=== PATIENT | female | born 1985 | race Caucasian/White ===

== ENCOUNTER 2016-11-20 12:45 | Emergency (ER) | payer OTHER ==
[~2016-11-20] VITALS: Ht 162.6 cm; Wt 95.9 kg
[~2016-11-20 12:45] MED LIST: SULF1TAB12 PO
[2016-11-20 13:32] VITALS: BP 125/75
--- NOTE | 2016-11-20 18:45 | NUR ---
Patient ambulated to bed 7. RN evaluating patient at bedside.
--- NOTE | 2016-11-20 18:50 | NUR ---
PATIENT PRESENTS TO ED WITH C/O SHARP EPIGASTRIC PAIN WITH N/V/ X 3DAYS;DIARRHEA SINCE YESTERDAY;UNABLE TO TOLERATE PO'S;SEVERE HEARTBURN AT NIGHT, BLOATED SENSATION;SKIN IS PINK/WARM/DRY; AAOX4 WITH EVEN AND STEADY GAIT; LUNGS CLEAR BL; HR EVEN AND REGULAR; PT DENIES ANY FEVER, CP, SOB, OR COUGH AT THIS TIME; PATIENT STATES PAIN OF 8/10 AT THIS TIME; PATIENT POSITIONED FOR COMFORT; HOB ELEVATED; BEDRAILS UP X2; BED DOWN. ALL MONITORS IN PLACED.
--- NOTE | 2016-11-20 19:18 | NUR ---
RECEIVED REPORT FROM DAY NURSE CEDRICK SCHILLING FOR TRANSFER OF CARE.
[2016-11-20] MEDS ORDERED: ONDANSETRON 4 MG/2 ML VIAL IVP ONE ×2 (19:50→22:15)
[2016-11-20] MEDS ORDERED: NACL 0.9% 1,000 ML IV ONE (19:50)
[2016-11-20] MEDS ORDERED: HYDROmorphone 1 MG/ML AMP IVP ONE ×2 (19:50→22:15)
--- NOTE | 2016-11-20 20:00 | NUR ---
PATIENT BEING EVALUATED BY DR. VARNER.
[2016-11-20 20:04] LABS: BASOPHILS # (AUTO) 0.2 K/uL (0.00-0.22); BASOPHILS % (AUTO) 1.6 % (0.0-2.0); EOSINOPHILS # (AUTO) 0.2 K/uL (0-0.4); EOSINOPHILS % (AUTO) 1.8 % (0.0-4.0); HEMATOCRIT 39.1 % (36-48); HEMOGLOBIN 12.5 g/dL (12.0-16.0); LYMPHOCYTES # (AUTO) 2.4 K/uL (2.5-16.5); LYMPHOCYTES % (AUTO) 19.8 % (20.5-51.1); MEAN CORPUSCULAR HEMOGLOBIN 27 pg (27-31); MEAN CORPUSCULAR HGB CONC 32 g/dL (33-37); MEAN CORPUSCULAR VOLUME 84 fL (80-94); MONOCYTES # (AUTO) 0.5 K/uL (0.8-1.0); MONOCYTES % (AUTO) 3.9 % (1.7-9.3); NEUTROPHILS # (AUTO) 9.1 K/uL (1.8-7.7); NEUTROPHILS % (AUTO) 72.9 % (42.2-75.2); PLATELET COUNT (AUTO) 236 K/uL (140-450); RED BLOOD CELL COUNT(AUTO) 4.65 MIL/uL (4.20-5.40); RED CELL DISTRIBUTION WIDTH 13.1 % (11.6-13.7); WHITE BLOOD COUNT (AUTO) 12.4 K/uL (4.8-10.8)
[2016-11-20 20:21] LABS: ANION GAP 11.4 (8-16); CALCIUM 8.8 mg/dL (8.5-10.1); CARBON DIOXIDE 28.9 mmol/L (21-32); CREATININE 0.8 mg/dL (0.6-1.3); POTASSIUM 4.3 mmol/L (3.5-5.1)
[2016-11-20 20:24] LABS: ALBUMIN 3.4 g/dL (3.4-5.0); TOTAL BILIRUBIN 0.4 mg/dL (0.0-1.0); TOTAL PROTEIN, SERUM 7.8 g/dL (6.4-8.2)
[2016-11-20 20:24] LABS: BILIRUBIN,URINE NEGATIVE (NEGATIVE); BLOOD, URINE NEGATIVE (NEGATIVE); COLOR,URINE YELLOW (YELLOW); LEUKOCYTE ESTERASE ,URINE NEGATIVE (NEGATIVE); NITRITE, URINE NEGATIVE (NEGATIVE); PROTEIN,URINE NEGATIVE (NEGATIVE); UGLUCOSE NEGATIVE (NEGATIVE); UROBILINOGEN,URINE 0.2 EU/dL (0.2 - 1)
[2016-11-20 20:26] LABS: APPEARANCE,URINE CLEAR (CLEAR)
--- NOTE | 2016-11-20 20:57 | NUR ---
PT TAKEN OFF UNIT TO CT VIA WHEELCHAIR ACCOMPANIED BY JOSE A BURNS
--- NOTE | 2016-11-20 21:13 | NUR ---
PT BACK ON UNIT FROM CT
[2016-11-20] MEDS ORDERED: GLYCOPYRROLATE 0.2 MG/ML VIAL IV ONE (22:15)
[2016-11-20] MEDS ORDERED: GLYCOPYRROLATE 0.2 MG/ML VIAL ONE (22:39)
--- NOTE | 2016-11-20 22:49 | NUR ---
PT HAVING US DONE AT BEDSIDE AT THIS TIME.
--- NOTE | 2016-11-20 23:39 | NUR ---
PT APPEARS TO BE RESTING COMFORTABLY IN BED. NO SOB NOTED. VITALS STABLE WILL CONTINUE TO MONITOR.
--- NOTE | 2016-11-21 01:12 | NUR ---
PT RESTING COMFORTABLY IN BED. NO SOB NOTED AT THIS TIME. VITALS STABLE. WILL CONTINUE TO MONITOR.
[2016-11-21] MEDS ORDERED: ONDANSETRON 4 MG/2 ML VIAL IVP ONE (01:35)
[2016-11-21 01:50] VITALS: BP 113/62
--- NOTE | 2016-11-21 01:51 | NUR ---
Patient discharged with v/s stable. Written and verbal after care instructions given and explained. Patient alert, oriented and verbalized understanding of instructions. Ambulatory with steady gait. All questions addressed prior to discharge. ID band removed. Patient advised to follow up with PMD. Rx of PROTONIX given. Patient educated on indication of medication including possible reaction and side effects. Opportunity to ask questions provided and answered.
== END 2016-11-21 01:51 | disposition home or self-care (01) ==
LOC: MED 12:45
DX: R10.13 Epigastric pain (principal); F17.210 Nicotine dependence, cigarettes, uncomplicated; Z87.442 Personal history of urinary calculi; Z88.6 Allergy status to analgesic agent
CPT/HCPCS: 36415; 74177; 76705; 80053; 81003; 81025; 82150; 83690; 85025; 96361; 96374; 96375; 96376; 99285; J1170; J2405; J3490; J7030; Q0092; Q9967